=== PATIENT | female | born 2000 | race African-American/Black ===

== ENCOUNTER 2021-03-17 21:07 | Emergency (ER) | payer SELFPAY ==
[~2021-03-17] VITALS: Ht 167.6 cm; Wt 50.0 kg
[2021-03-17 22:02] VITALS: BP 113/69
[2021-03-17] MEDS ORDERED: MAGNESIUM/ALUMINUM HYDROXIDE/SIMETHICONE 30ML UDC PO STA (22:13)
[2021-03-17] MEDS ORDERED: ACETAMINOPHEN 325MG TABLET PO STA (22:13)
[2021-03-17] MEDS ORDERED: VISCOUS LIDOCAINE 2% 15 ML UDC PO STA (22:13)
[2021-03-17 22:48] LABS: CLARITY URINE CLEAR (CLEAR); COLOR URINE YELLOW (YELLOW); KETONES URINE NEGATIVE (NEGATIVE); LEUKOCYTE ESTERASE URINE NEGATIVE (NEGATIVE); NITRITE URINE NEGATIVE (NEGATIVE); OCCULT BLOOD URINE TRACE (NEGATIVE); PROTEIN URINE NEGATIVE (NEGATIVE); SPECIFIC GRAVITY URINE 1.018 (1.005-1.030)
[2021-03-17 23:34] LABS: BASOPHILS % 0.8 % (0.0-2.0); EOSINOPHILS % 1.1 % (0.0-5.0); HEMATOCRIT. 35.5 % (36.0-48.0); LYMPHOCYTES % 35.9 % (20.0-50.0); MEAN CORPUSCULAR HEMOGLOBIN 30.6 pg (28.0-32.0); MEAN CORPUSCULAR VOLUME 90.5 fL (81.0-99.0); MEAN PLATELET VOLUME 8.2 fl (7.4-10.4); NEUTROPHILS % 55.2 % (40.0-76.0); PLATELET 222 x1000/uL (130-400); RED BLOOD CELL COUNT 3.93 mill/uL (4.2-5.4); RED CELL DISTRIBUTION WIDTH 12.7 % (11.6-14.6)
[2021-03-17 23:39] LABS: CHLORIDE 106 mEq/L (98-107)
[2021-03-18] MEDS ORDERED: CEPH500C2 MT (00:10)
== END 2021-03-18 00:29 | disposition home or self-care (01) ==
LOC: ER 21:07
DX: R10.0 Acute abdomen (principal)
CPT/HCPCS: 36415; 80053; 81003; 81025; 85025; 99283